=== PATIENT | female | born 1975 | race American Indian/Alaskan Native ===

== ENCOUNTER 2017-03-29 16:42 | Inpatient (IN) | payer MEDICAID ==
[2017-03-29 17:27] LABS: Basophils % (Auto) 0.8 % (0.0-1.8); Eosinophils % (Auto) 4.6 % (0.0-4.3); Hematocrit 38.6 % (30.3-42.9); Hemoglobin 12.7 gm/dl (10.1-14.3); Mean Corpuscular HGB Conc 33 % (30-34); Mean Corpuscular Hemoglobin 27 pg (28-32); Mean Corpuscular Volume 82 fl (79-97); Platelet Count 329 K/mm3 (140-440); Red Blood Count 4.74 M/mm3 (3.65-5.03); Red Cell Distribution Width 13.7 % (13.2-15.2); White Blood Count 6.7 K/mm3 (4.5-11.0)
[2017-03-29 17:33] LABS: Anion Gap 20 mmol/L; Blood Urea Nitrogen 12 mg/dL (7-17); Calcium 8.9 mg/dL (8.4-10.2); Carbon Dioxide 22 mmol/L (22-30); Chloride 100.1 mmol/L (98-107); Glucose 273 mg/dL (65-100); Potassium 4.1 mmol/L (3.6-5.0); Sodium 138 mmol/L (137-145)
[2017-03-29 17:45] LABS: INR 0.93 (0.87-1.13)
[2017-03-29 17:46] LABS: Partial Thromboplastin Time 28.8 Sec. (24.2-36.6)
--- NOTE | 2017-03-29 18:35 | Cat Scan Report ---
FINAL REPORT PROCEDURE: CT HEAD/BRAIN WO CON TECHNIQUE: Computerized tomography of the head was performed without contrast material. HISTORY: neuro deficits \T\lt; 6hrs or sx present upon awakening COMPARISON: No prior studies are available for comparison. FINDINGS: Visualized portions of the paranasal sinuses and mastoid air cells are clear. Minimal mucosal thickening is seen in the left ethmoid air cells. Cerebral ventricles are normal in size. No acute intracranial hemorrhage or mass effect is seen. No CVA is seen. Artifacts slightly limit the study. IMPRESSION: No abnormalities are seen.
[2017-03-29] MEDS ORDERED: TORADOL IV ONE (21:54)
[2017-03-29] MEDS ORDERED: CATAPRES PO ONE (21:54)
[2017-03-29] MEDS ORDERED: ASPIRIN PO ONE (21:55)
--- NOTE | 2017-03-29 22:44 | Emergency Department Report ---
ED Neuro Deficit HPI - General Chief Complaint: Weakness Stated Complaint: CHANGE IN SPEECH/RT ARM PAIN Time Seen by Provider: 03/29/17 20:44 Source: patient Mode of arrival: Ambulatory Limitations: No Limitations - History of Present Illness Initial Comments: 42-year-old female with a past medical history of CHF, COPD, diabetes, hypertension, schizophrenia, bipolar disorder, and lupus (daily prednisone use) presents to the hospital with elevated blood pressure and neurologic deficits. Patient states in her psychiatric clinic they were checking blood pressures. Her blood pressure was found to be elevated. Upon further questioning she admitted to staff that she has had slurred speech 1 week and right arm weakness and pain 1 week. Patient also complains of intermittent headache 1 week but denies headache currently. Patient does not take an aspirin daily. She has been compliant with all her medications including BP meds. Patient had an pain in her right shoulder which is worse with palpation and movement. Denies any recent trauma or fevers. - Related Data Home Medications: Home Medications Medication Instructions Recorded Confirmed Last Taken Glyburide 10 mg PO BID 03/29/17 03/29/17 03/29/17 Haldol 10 mg PO QHS 03/29/17 03/29/17 03/28/17 Metoprolol 25 mg PO DAILY 03/29/17 03/29/17 03/29/17 Prednisone 10 mg PO DAILY 03/29/17 03/29/17 03/29/17 Zoloft 50 mg PO DAILY 03/29/17 03/29/17 03/29/17 12:00 lamoTRIgine 50 mg PO DAILY 03/29/17 03/29/17 03/29/17 12:00 metFORMIN 1,000 mg BID 03/29/17 03/29/17 03/29/17 Allergies/Adverse Reactions: Allergies Allergy/AdvReac Type Severity Reaction Status Date / Time strawberry Allergy Hives Verified 03/29/17 16:55 ED Review of Systems ROS: Stated complaint: CHANGE IN SPEECH/RT ARM PAIN Other details as noted in HPI Comment: All other systems reviewed and negative Other: Constitutional: No fevers chills Eyes: No eye pain visual changes ENT: No ear pain or throat pain Neck: Denies pain Respiratory: Denies cough wheezing shortness of breath Cardiovascular: Denies chest pain, palpitations, syncope GI: Denies abdominal pain, nausea, vomiting, diarrhea : Denies dysuria Musculoskeletal: As per HPI Skin: Denies rash, lesions, erythema Neurologic: As per HPI Psychiatric: Denies suicidal ideation, hallucinations ED Past Medical Hx - Past Medical History Previous Medical History?: Yes Hx Hypertension: Yes Hx Congestive Heart Failure: Yes Hx Diabetes: Yes Hx Psychiatric Treatment: Yes (Schz. Bi-polar Depression) Hx COPD: Yes Additional medical history: Lupus - Social History Smoking Status: Never Smoker Substance Use Type: None - Medications Home Medications: Home Medications Medication Instructions Recorded Confirmed Last Taken Type Glyburide 10 mg PO BID 03/29/17 03/29/17 03/29/17 History Haldol 10 mg PO QHS 03/29/17 03/29/17 03/28/17 History Metoprolol 25 mg PO DAILY 03/29/17 03/29/17 03/29/17 History Prednisone 10 mg PO DAILY 03/29/17 03/29/17 03/29/17 History Zoloft 50 mg PO DAILY 03/29/17 03/29/17 03/29/17 12:00 History lamoTRIgine 50 mg PO DAILY 03/29/17 03/29/17 03/29/17 12:00 History metFORMIN 1,000 mg BID 03/29/17 03/29/17 03/29/17 History ED Neuro Physical Exam - General Limitations: No Limitations Suspected Stroke: Yes - Neurological Exam Neurological exam: Present: alert - NIHSS Assessment Interval: Baseline 1a. Level of Consciousness: alert 1b. LOC Questions: answers correctly 1c. LOC Commands: performs tasks correctly 2. Best Gaze: normal 3. Visual: no visual loss 4. Facial Palsy: normal symmetrical movement 5b. Motor Arm Right: drift 5a. Motor Arm Left: no drift 6a. Motor Leg Left: no drift 6b. Motor Leg Right: drift 7. Limb Ataxia: absent 8. Sensory: normal 9. Best Language: no aphasia 10. Dysarthria: normal 11. Extinction/Inattention: no abnormality Total Score: 2 Stroke Severity: Minor Stroke - Other Other exam information: General: No limitations, patient is alert in no acute distress Head exam: Atraumatic, normocephalic Eyes exam: Normal appearance, pupils equal reactive to light, extraocular movements intact ENT: Moist mucous membrane, normal oropharynx Neck exam: Normal inspection, full range of motion, no meningismus nontender Respiratory exam: Clear to auscultation bilateral, no wheezes, rales, crackles Cardiovascular: Normal rate and rhythm, normal heart sounds Abdomen: Soft, nondistended, and nontender, with normal bowel sounds, no rebound, or guarding Extremity: No deformity. Tenderness to right shoulder. No warmth or erythema. Pain with extension, abduction, and external rotation of the right shoulder and therefore limited. Pain at the right hip with active flexion. Back: Normal Inspection, full range of motion, no tenderness Neurologic: Alert, oriented x3, cranial nerves intact, no facial droop, I do not appreciate significant slurred speech but patient claims her speech is different from normal. Equal hand microsoft developer and foot dorsiflexion. Weakness in the right arm with extension at the shoulder secondary to pain. Patient also had an decrease in tach gravity strength of the right leg and complains of right hip pain. Strength is 4/5 on a right compared to 5/5 on the left upper and lower extremity Psychiatric: normal affect, normal mood Skin: Warm, dry, intact ED Course Vital Signs 03/29/17 03/29/17 03/29/17 16:56 20:31 21:26 Temperature 98.6 F Pulse Rate 98 H 90 Respiratory 16 Rate Blood Pressure 177/111 185/121 O2 Sat by Pulse 100 98 99 Oximetry 03/29/17 03/29/17 21:30 21:41 Temperature Pulse Rate 81 Respiratory 16 Rate Blood Pressure 187/100 O2 Sat by Pulse 99 Oximetry - Reevaluation(s) Reevaluation #1: 03/29/17 22:40 She received aspirin, Toradol, and clonidine for stroke symptoms, pain, and elevated blood pressure - Consultations Consultation #1: 03/29/17 21:[address] Sanders rehabilitation teacher neurologist with the neurology service. Agrees that presentation sounds atypical for stroke and compounded by the fact that patient has significant pain to these extremities as well. Recommended MRI in a.m. to rule out stroke symptoms and blood pressure management. He will write a note - Lab Data Result diagrams: 03/29/17 17:07 03/29/17 17:00 Lab Results 03/29/17 03/29/17 03/29/17 Range/Units 17:00 17:00 17:07 WBC 6.7 (4.5-11.0) K/mm3 RBC 4.74 (3.65-5.03) M/mm3 Hgb 12.7 (10.1-14.3) gm/dl Hct 38.6 (30.3-42.9) % MCV 82 (79-97) fl MCH 27 L (28-32) pg MCHC 33 (30-34) % RDW 13.7 (13.2-15.2) % Plt Count 329 (140-440) K/mm3 Lymph % (Auto) 35.5 H (13.4-35.0) % Vance % (Auto) 5.9 (0.0-7.3) % Eos % (Auto) 4.6 H (0.0-4.3) % Baso % (Auto) 0.8 (0.0-1.8) % Lymph # 2.4 (1.2-5.4) K/mm3 Vance # 0.4 (0.0-0.8) K/mm3 Eos # 0.3 (0.0-0.4) K/mm3 Baso # 0.1 (0.0-0.1) K/mm3 Seg Neutrophils % 53.2 (40.0-70.0) % Seg Neutrophils # 3.6 (1.8-7.7) K/mm3 PT 12.9 (12.2-14.9) Sec. INR 0.93 (0.87-1.13) APTT 28.8 (24.2-36.6) Sec. Thrombin Time (15.1-19.6) Sec. Sodium 138 (137-145) mmol/L Potassium 4.1 (3.6-5.0) mmol/L Chloride 100.1 (98-107) mmol/L Carbon Dioxide 22 (22-30) mmol/L Anion Gap 20 mmol/L BUN 12 (7-17) mg/dL Creatinine 0.8 (0.7-1.2) mg/dL Estimated GFR > 60 ml/min BUN/Creatinine Ratio 15.00 % Glucose 273 H (65-100) mg/dL Calcium 8.9 (8.4-10.2) mg/dL Troponin T < 0.010 (0.00-0.029) ng/mL 03/29/17 Range/Units 17:07 WBC (4.5-11.0) K/mm3 RBC (3.65-5.03) M/mm3 Hgb (10.1-14.3) gm/dl Hct (30.3-42.9) % MCV (79-97) fl MCH (28-32) pg MCHC (30-34) % RDW (13.2-15.2) % Plt Count (140-440) K/mm3 Lymph % (Auto) (13.4-35.0) % Vance % (Auto) (0.0-7.3) % Eos % (Auto) (0.0-4.3) % Baso % (Auto) (0.0-1.8) % Lymph # (1.2-5.4) K/mm3 Vance # (0.0-0.8) K/mm3 Eos # (0.0-0.4) K/mm3 Baso # (0.0-0.1) K/mm3 Seg Neutrophils % (40.0-70.0) % Seg Neutrophils # (1.8-7.7) K/mm3 PT (12.2-14.9) Sec. INR (0.87-1.13) APTT (24.2-36.6) Sec. Thrombin Time 15.8 (15.1-19.6) Sec. Sodium (137-145) mmol/L Potassium (3.6-5.0) mmol/L Chloride (98-107) mmol/L Carbon Dioxide (22-30) mmol/L Anion Gap mmol/L BUN (7-17) mg/dL Creatinine (0.7-1.2) mg/dL Estimated GFR ml/min BUN/Creatinine Ratio % Glucose (65-100) mg/dL Calcium (8.4-10.2) mg/dL Troponin T (0.00-0.029) ng/mL - EKG Data -: EKG Interpreted by Me (sinus rate [address] elevation PR can't rule out anterior infarct) When compared to previous EKG there are: previous EKG unavailable - Radiology Data Radiology results: report reviewed Read by radiologist CT head: No acute findings Read by me: Right shoulder x-ray: No acute fracture. Possible degenerative joint disease. Official report requested and pending - Medical Decision Making Plan admit patient to the hospital for blood pressure reduction. I suspect that patient's symptoms are musculoskeletal related and weakness is secondary to pain however, patient has several stroke risk factors and after consultation with neurology patient will receive MRI during admission to rule out stroke - Differential Diagnosis lupus cerebritis, CVA, musculoskeletal pain, hypertensive emergency Critical Care Time: No Critical care attestation.: If time is entered above; I have spent that time in minutes in the direct care of this critically ill patient, excluding procedure time. ED Disposition Clinical Impression: Right sided weakness, Right shoulder pain, Lupus, Uncontrolled hypertension, Slurred speech, Schizophrenia, Bipolar disorder, Diabetes Disposition: OP ADMIT IP TO THIS HOSP Is pt being admited?: Yes Does the pt Need Aspirin: Yes Condition: Stable Referrals: PRIMARY CARE, [Primary Care Provider] - 3-5 Days Time of Disposition: 22:39 (DR Medina/hosp)
--- NOTE | 2017-03-29 23:44 | History and Physical Report ---
History of Present Illness Date of examination: 03/30/17 History of present illness: 42-year-old man with a history of hypertension, lupus, diabetes, COPD, CHF, schizophrenia, bipolar comes emergency room with complaints of slurred speech and right arm numbness. Her blood pressure was noted to be very elevated patient states she is compliant with medications Review Of Systems: Constitutional: no fever, chills, weight loss Ears, eyes, nose, mouth and throat: no nasal congestion, no nasal discharge, no sinus pressure, blurry vision, diplopia Neck: No neck pain or rigidity. Cardiovascular: chest pain, orthopnea, palpitations Respiratory: No shortness of breath, cough Gastrointestinal: abdominal pain, hematochezia Genitourinary : no dysuria, frequency , hematuria Musculoskeletal: no joint swelling or muscle ache Integumentary: no rash, no pruritis Neurological: no parathesias Endocrine: no cold or heat intolerance, no polyuria or polydipsia Hematologic/Lymphatic: no easy bruising, no easy bleeding, no gland swelling Allergic/Immunologic: no urticaria, no angioedema. PAST MEDICAL HISTORY:hypertension, lupus, diabetes, COPD, CHF, schizophrenia, bipolar PAST SURGICAL HISTORY: Ankle FAMILY HISTORY: Hypertension SOCIAL HISTORY: Denies alcohol, tobacco or drug Medications and Allergies Allergies Allergy/AdvReac Type Severity Reaction Status Date / Time strawberry Allergy Hives Verified 03/29/17 16:55 Home Medications Medication Instructions Recorded Confirmed Last Taken Type Glyburide 10 mg PO BID 03/29/17 03/29/17 03/29/17 History Haldol 10 mg PO QHS 03/29/17 03/29/17 03/28/17 History Metoprolol 25 mg PO DAILY 03/29/17 03/29/17 03/29/17 History Prednisone 10 mg PO DAILY 03/29/17 03/29/17 03/29/17 History Zoloft 50 mg PO DAILY 03/29/17 03/29/17 03/29/17 12:00 History lamoTRIgine 50 mg PO DAILY 03/29/17 03/29/17 03/29/17 12:00 History metFORMIN 1,000 mg BID 03/29/17 03/29/17 03/29/17 History Exam - Physical Exam Narrative exam: Gen. appearance: Patient lying in bed, no apparent distress HEENT: Normocephalic, atraumatic, pupils equally round and reactive to light, extraocular movement intact, and no sclericterus,. No JVD or thyromegaly or nodule,neck supple, no carotid bruit ,mucous membranes moist, no exudate or erythema Heart: S1, S2, regular rate and rhythm Lungs: Clear to auscultation bilaterally, breathing comfortable Abdomen: Positive bowel sounds, nontender, nondistended, no organomegaly Extremity: No edema, cyanosis, clubbing Skin: No rash, nodules, warm, dry Neuro: Oriented 3, cranial nerves II-12 intact, speech is fluent, poor effort for motor testing - Constitutional Vitals: Temp Pulse Resp BP Pulse Ox 98.6 F 81 16 187/100 99 03/29/17 16:56 03/29/17 21:41 03/29/17 21:41 03/29/17 21:30 03/29/17 21:30 Results - Labs CBC & Chem 7: 03/29/17 17:07 03/29/17 17:00 Labs: Abnormal lab results 03/29/17 03/29/17 Range/Units 17:00 17:07 MCH 27 L (28-32) pg Lymph % (Auto) 35.5 H (13.4-35.0) % Eos % (Auto) 4.6 H (0.0-4.3) % Glucose 273 H (65-100) mg/dL - Imaging and Cardiology CT Scan - head: report reviewed Assessment and Plan Shoulder x-ray reviewed Assessment Possible CVA Hypertension uncontrolled Diabetes Lupus CHF, stable Schizophrenia Plan Admit to medicine obtain MRI, carotid Doppler, echo Do neurochecks, swallow screen Start aspirin, statin, check fingersticks and initiate insulin sliding scale IV hydralazine as needed for blood pressure control Continue appropriate outpatient medications, start dvt prophalaxis
[2017-03-30] MEDS ORDERED: DULCOLAX PR PRN (00:15)
[2017-03-30] MEDS ORDERED: ZOFRAN IV PRN (00:15)
[2017-03-30] MEDS ORDERED: REGLAN PO PRN (00:15)
[2017-03-30] MEDS ORDERED: MILK OF MAGNESIA PO PRN (00:15)
[2017-03-30] MEDS ORDERED: APRESOLINE IV PRN (00:15)
[2017-03-30] MEDS ORDERED: SODIUM CHLORIDE FLUSH SYRINGE 10 ML IV PRN (00:15)
[2017-03-30] MEDS ORDERED: TYLENOL PO PRN (00:15)
--- NOTE | 2017-03-30 00:29 | XRay Report ---
FINAL REPORT PROCEDURE: XR SHOULDER 2+V RT TECHNIQUE: Right shoulder radiographs including AP views in internal and external rotation and abduction. CPT 64315 HISTORY: shoulder pain COMPARISON: No prior studies are available for comparison. FINDINGS: Fracture (s) and/or Dislocation(s): None . Joint space(s): Moderate narrowing of the joint spaces. Slight subchondral spur formation identified in the proximal humerus and the glenoid.. Soft tissues: Normal . Bone mineralization: Normal . Foreign bodies: None . IMPRESSION: No acute fracture or dislocation. Moderate arthritis
[2017-03-30] MEDS: LOVENOX SUB-Q SCH (10:00)
[2017-03-30] MEDS ORDERED: LOVENOX SUB-Q SCH (10:00)
[2017-03-30] MEDS ORDERED: ATIVAN IV NR (10:00)
--- NOTE | 2017-03-30 10:20 | Admit Criteria Form ---
Admission Criteria Documentation: NEUROLOGY GRG Clinical Indications for Admission to Inpatient Care (Place ' X' for any and all applicable criteria): Hospital admission is needed for appropriate care of the patient because of 1 or more of the following: [ ]I. Encephalitis [ ]II. Severe [employer] infections indicated by 1 or more of the following(1)(2)(3) : [ ]a) Intracranial abscess [ ]b) Spinal abscess or myelitis [ ]c) Tuberculous or other nonbacterial, nonviral [employer] infection(8) [ ]III. Vasculitis and 1 or more of the following(14)(15): []a) Altered mental status that is severe or persistent or other acute neurologic change []b) Psychosis []c) Seizure [ ]IV. Status epilepticus or repetitive seizures not controlled with emergent treatment [A] (7)(8) [ ]V. Altered mental status that is severe or persistent [ ]. Transient alteration in consciousness with high-risk etiology; examples include (12)(13): [ ]a) Cardiovascular source [ ]b) Cataplexy [ ]VII. Cerebral aneurysm requiring ANY ONE of the following(14): [ ]a) IV antihypertensives or vasoactive agents [ ]b) Sedation and analgesia for suspected leak [ ]c) Need for external ventricular drainage and cerebral perfusion pressure monitoring [ ]d) Emergent evaluation to determine need for surgical clipping or endovascular coiling by interventional radiology. If surgery is required ( Also use Craniotomy, Supratentorial, for Surgery of Bleeding Intracranial Aneurysm (for bleeding aneurysm) or Craniotomy, Supratentorial (for nonbleeding aneurysm) as appropriate. [ ]VIII. New-onset severe neurologic symptom requiring inpatient care indicated by ANY ONE of the following: [ ]a) Aphasia(15) [ ]b) Weakness (grade 3 or less) [ ]c) Paralysis (eg, hemiplegia) [ ]d) Spasticity(16) [ ]e) Dystonia [ ]e) Ataxia(17) [ ]f) Amnesia(18) [ ]g) Involuntary movements(19) [ ]h) Vertigo [ ] Visual loss [ ]i) Other severe neurologic finding (eg, papilledema, mass effect on imaging, myoclonus not treatable at alternative level of care (eg, observation care) [ ]IX. Guillain-Forbes syndrome(20) [ ]X. Myasthenia gravis crisis or inpatient monitoring need as indicated by 1 or more of the following(21): [ ]a) Intensive treatment (eg, course of plasmapheresis) with inadequate outpatient situation to monitor patients status [ ]b) Inadequate airway protection [ ]c) Respiratory insufficiency requiring intubation or inpatient. monitoring [ ]d) Progressive dysphagia with failure to thrive [ ]XI. Multiple sclerosis or other acute demyelinating disease requiring inpatient care as indicated by 1 or more of the following (22)(23): [ ]a) Acute severe deterioration requiring inpatient treatment (eg, IV steroids, plasmapheresis, close observation) [ ]b) Acute complication requiring inpatient care (eg, sepsis, severe decubitus, aspiration) [ ]XII.Parkinson disease requiring inpatient care (Also use Optimal Recovery Care Criteria or General Recovery Criteria as appropriate) indicated by 1 or more of the following(25): [ ]a) Infection (eg, aspiration pneumonia) not treatable at alternative level of care [ ]b Dehydration that is severe or persistent [ ]c) Life-threatening agitation or psychotic behavior not treatable on emergency, observation care, or alternative level (eg, residential) basis [ ]d) Severe medication withdrawal effects (eg, freezing, neuroleptic malignant syndrome) not responsive to emergency and observation care treatment ( as appropriate) [ ]e) Other severe manifestation not treatable at alternative level of care [ ]XII. Amyotrophic lateral sclerosis with inpatient care needs as indicated by ANY ONE of the following(26): [ ]a) Acute complications (eg, aspiration pneumonia, sepsis ) requiring inpatient care ( see other optimal Recovery Guideline as appropriate) [ ]b) Dehydration that is severe persistent AND artificial support desired [ ]c) Inadequate airway protection AND artificial support desired [ ]d) Severe ventilatory insufficiency AND artificial support desired [ ]XIII. Myasthenia gravis crisis or inpatient monitoring need as indicated by 1 or more of the following(21): [] a) Inadequate airway protection []b) Respiratory insufficiency requiring intubation or inpatient monitoring []c) Progressive dysphagia with failure to thrive []d) Intensive treatment (e.g., course of plasmapheresis) with inadequate outpatient situation to monitor patients status [ ]XIV. Multiple sclerosis or other acute demyelinating disease requiring inpatient care indicated by 1 or more of the following[C](36)(43)(44)(45)(46): []a) Acute severe deterioration requiring inpatient treatment (eg, IV steroids, plasmapheresis, close observation) []b) Acute complication requiring inpatient care (eg, sepsis, severe decubitus, aspiration) [ ]XV. Intracranial hypertension (e.g., pseudotumor cerebri) requiring inpatient care (e.g., acute visual loss, inadequate oral intake) (47)(48)(49) [ ]XVI. Parkinson disease requiring inpatient care (Also use Optimal Recovery Care Criteria or General Recovery Criteria as appropriate) indicated by 1 or more of the following(25): [] a) Infection (e.g., aspiration pneumonia) not treatable at alternative level of care []b) Volume depletion not responsive to emergency and observation care treatment (as appropriate) []c) Life-threatening agitation or psychotic behavior not treatable on emergency, observation care, or alternative level (e.g., residential) basis []d) Severe medication withdrawal effects (e.g., freezing, neuroleptic malignant syndrome) not responsive to emergency and observation care treatment (as appropriate) []e) Other severe manifestation not treatable at alternative level of care [ ]XVII. Amyotrophic lateral sclerosis with inpatient care needs as indicated by1 or more of the following(42): []a) Acute complications (eg, aspiration pneumonia, sepsis) requiring inpatient care (see other Optimal Recovery Guideline or General Recovery Guideline as appropriate) []b) Dehydration that is severe or persistent AND artificial support desired []c) Inadequate airway protection AND artificial support desired []d) Severe ventilatory insufficiency AND artificial support desired [ ]XVIII. Severe myopathy, neuropathy, or other neuromuscular disease indicated by 1 or more of the following(42)(52)(53)(54): []a ) New-onset severe diffuse weakness (eg, strength 3/5 or less) []b) Severe dysphagia []c) Dyspnea at rest or with minimal exertion (new) []d) Inadequate airway protection []e) Inadequate ventilation indicated by 1 or more of the following : i) Partial pressure of carbon dioxide greater than 44 mm Hg ( 5.9 kPa) (new) ii) Reduced peak expiratory flow rate (new) iii) Vital capacity less than 50% of predicted (less than 15 mL/kg) iv) Peak inspiratory force less negative than -30 cm H2O (- 2942 Pa) [ ]XVII.Complications of congenital or degenerative disease (eg, infection, seizures, dehydration, injury) not responsive to emergency and observation care treatment (as appropriate ) [C](16)(29)(30) [ ]XVIII.Suspected or confirmed nerve or muscle toxic injury, including ANY ONE of the following: [ ]a) Rhabdomyolysis(31) i) Acute renal failure ii) Dehydration that is severe or persistent iii) Altered mental status that is severe or persistent iv) Electrolyte abnormality that remains after emergency or observation level care ( as appropriate) [ ]b) Botulism(32) [ ]c) Other severe toxin-induced sign or symptom [ ]XIX. Neurologic trauma requiring inpatient treatment (medical) indicated by ANY ONE of the following(33)(34): [ ]a) Vital signs or neurologic signs more frequently than every 4 hours [ ]b) Hyperosmolar therapy [ ]c) Respiratory monitoring [ ]d) Intracranial pressure monitoring and treatment [ ]e) Stabilization and immobilization device placement (eg, braces, body jacket) [ ]f) Intubation & mechanical ventilation for airway protection or therapeutic hyperventilation [ ]g) Other treatment or monitoring needed that requires inpatient level of care [ ]XX.Complications of neurologic devices (eg, ventricular shunt, neurostimulator) requiring 1 or more of the following(35)(36): [ ]a) IV antibiotics with monitoring while awaiting culture results [ ]b) Monitoring for hydrocephalus [ X]XXI. Neurology condition symptom, or finding for which emergency and observation care have failed or are not considered appropriate. See General Criteria: Observation Care ISC, General Admission Criteria GRG, or Pediatric General Admission Criteria GRG guideline as appropriate. The original [facility] [employer] content created by [email or web address] has been revised. The portions of the content which have been revised are identified through the use of italic text or in bold, and [facility] has neither reviewed nor approved the modified material. All other unmodified content is copyright [facility] Please see references footnoted in the original [facility] edition 2016 Admission Criteria Met: Yes
--- NOTE | 2017-03-30 13:25 | Magnetic Resonance Report ---
MRI BRAIN WITHOUT CONTRAST INDICATION: Stroke. COMPARISON: Yesterday's head CT. FINDINGS: Noncontrast multiplanar and multisequence MRI of the brain demonstrates normal ventricles and sulci. No acute infarct, hemorrhage mass effect or midline shift. No abnormal extra-axial fluid collections. Normal major intracranial vascular flow voids. Normal posterior fossa with symmetric seventh and eighth nerve complexes and preserved basilar cisterns. Normal eye globes. Mild to moderate bilateral ethmoid sinusitis. Clear remainder imaged paranasal sinuses and mastoid air cells. Partially empty sella. Normal remainder midline structures without evidence of Chiari malformation. CONCLUSION: Bilateral ethmoid sinusitis; otherwise unremarkable exam. Please correlate. Thank you for the opportunity to participate in this patient's care.
--- NOTE | 2017-03-30 16:34 | Progress Note ---
Assessment and Plan Assessment and plan: 42-year-old man with a history of hypertension, lupus, diabetes, COPD, CHF, schizophrenia, bipolar comes emergency room with complaints of slurred speech and right arm numbness. Her blood pressure was noted to be very elevated patient states she is compliant with medications CVA was ruled out -Has no focal weakness, MRI of her brain does not show any stroke, symptoms are most likely due to hypertensive urgency Hypertensive urgency Optimize blood pressure medications Diabetes Accu-Cheks, sliding scale and diabetic diet Continue home medications for her chronic problems include lupus CHF and schizophrenia History Interval history: Denies chest pain and denies shortness of breath denies focal weakness Hospitalist Physical - Physical exam Narrative exam: General: Patient appears well in no distress HEENT: MMM, EOMI cardiac: S1-S2 heard lungs: clear to auscultation, abdomen: soft, nontender, nondistended bowel sounds positive extremities: no edema clubbing or cyanosis Skin: no rash or lesion Neuro: no focal deficit Psych: appropriate behavior and mood, cognition intact - Constitutional Vitals: Temp Pulse Resp BP Pulse Ox 98.2 F 88 16 179/107 96 03/30/17 08:46 03/30/17 08:46 03/30/17 08:46 03/30/17 08:46 03/30/17 08:46 Results - Labs CBC & Chem 7: 03/29/17 17:07 03/29/17 17:00 Labs: Laboratory Last Values WBC 6.7 K/mm3 (4.5-11.0) 03/29/17 17:07 RBC 4.74 M/mm3 (3.65-5.03) 03/29/17 17:07 Hgb 12.7 gm/dl (10.1-14.3) 03/29/17 17:07 Hct 38.6 % (30.3-42.9) 03/29/17 17:07 MCV 82 fl (79-97) 03/29/17 17:07 MCH 27 pg (28-32) L 03/29/17 17:07 MCHC 33 % (30-34) 03/29/17 17:07 RDW 13.7 % (13.2-15.2) 03/29/17 17:07 Plt Count 329 K/mm3 (140-440) 03/29/17 17:07 Lymph % (Auto) 35.5 % (13.4-35.0) H 03/29/17 17:07 [place] % (Auto) 5.9 % (0.0-7.3) 03/29/17 17:07 Eos % (Auto) 4.6 % (0.0-4.3) H 03/29/17 17:07 Baso % (Auto) 0.8 % (0.0-1.8) 03/29/17 17:07 Lymph # 2.4 K/mm3 (1.2-5.4) 03/29/17 17:07 [place] # 0.4 K/mm3 (0.0-0.8) 03/29/17 17:07 Eos # 0.3 K/mm3 (0.0-0.4) 03/29/17 17:07 Baso # 0.1 K/mm3 (0.0-0.1) 03/29/17 17:07 Seg Neutrophils % 53.2 % (40.0-70.0) 03/29/17 17:07 Seg Neutrophils # 3.6 K/mm3 (1.8-7.7) 03/29/17 17:07 PT 12.9 Sec. (12.2-14.9) 03/29/17 17:00 INR 0.93 (0.87-1.13) 03/29/17 17:00 APTT 28.8 Sec. (24.2-36.6) 03/29/17 17:00 Thrombin Time 15.8 Sec. (15.1-19.6) 03/29/17 17:07 Sodium 138 mmol/L (137-145) 03/29/17 17:00 Potassium 4.1 mmol/L (3.6-5.0) 03/29/17 17:00 Chloride 100.1 mmol/L (98-107) 03/29/17 17:00 Carbon Dioxide 22 mmol/L (22-30) 03/29/17 17:00 Anion Gap 20 mmol/L 03/29/17 17:00 BUN 12 mg/dL (7-17) 03/29/17 17:00 Creatinine 0.8 mg/dL (0.7-1.2) 03/29/17 17:00 Estimated GFR > 60 ml/min 03/29/17 17:00 BUN/Creatinine Ratio 15.00 % 03/29/17 17:00 Glucose 273 mg/dL (65-100) H 03/29/17 17:00 POC Glucose 187 (70-105) H 03/30/17 07:59 Calcium 8.9 mg/dL (8.4-10.2) 03/29/17 17:00 Troponin T < 0.010 ng/mL (0.00-0.029) 03/29/17 17:00 - Imaging and Cardiology MRI - head: image reviewed (no acute pathology or stroke)
[2017-03-30] MEDS: ASPIRIN PO SCH (16:51)
[2017-03-30] MEDS: GLUCOPHAGE PO SCH (18:09)
[2017-03-30] MEDS: DIOVAN PO SCH (21:20)
[2017-03-30] MEDS ORDERED: HALDOL PO SCH ×2 (22:00)
[2017-03-30] MEDS ORDERED: ZOCOR PO SCH (22:00)
[2017-03-30] MEDS ORDERED: NON-FORMULARY (Metformin 1,000 MG) PO SCH (22:00)
[2017-03-31 08:17] VITALS: BP 144/94
--- NOTE | 2017-03-31 08:35 | Discharge Summary ---
Providers - Providers Date of Admission: 03/29/17 23:44 Attending physician: HARJINDER BRYAN MD 03/30/17 00:15 Occupational Therapy Evaluate and Treat [CONS] Routine Comment: Reason For Exam: Neuro deficits Physical Therapy Evaluation and Treat [CONS] Routine Comment: Reason For Exam: Neuro deficits 03/30/17 00:23 Consult to Physician [CONS] Routine Consulting Provider: DAVID RODRIGUEZ Reason For Exam: possible cva Notified:: information assurance specialist pl call Primary care physician: MAINTENANCE REPRESENTATIVE Hospitalization Condition: Stable Pertinent studies: MRI brain, image reviewed, no evidence of CVA. Carotid Dopplers, image reviewed, no significant stenosis Hospital course: 42-year-old man with a history of hypertension, lupus, diabetes, COPD, CHF, schizophrenia, bipolar comes emergency room with complaints of slurred speech and right arm numbness. Her blood pressure was noted to be very elevated patient states she is compliant with medications. She never actually had any focal weakness but she did have a numbness and tingling of bilateral upper extremities. She had CT of her head and MRI which ruled out CVA. She did have hypertensive urgency. Medications optimized. She is content to resume her home medications while in hospital. Her symptoms are most likely due to hypertensive urgency and resolved prior to discharge. Discharge diagnosis Hypertensive urgency Diabetes type 2 SLE Schizophrenia Chronic diasystolic CHF Disposition: - TO HOME OR SELFCARE Time spent for discharge: 33 minutes Core Measure Documentation - Palliative Care Palliative Care/ Comfort Measures: Not Applicable - Core Measures Any of the following diagnoses?: none Exam - Constitutional Vitals: Temp Pulse Resp BP Pulse Ox 98.3 F 104 H 20 144/94 98 03/31/17 08:00 03/31/17 08:00 03/31/17 08:00 03/31/17 08:00 03/31/17 08:00 General appearance: Present: no acute distress, well-nourished - EENT Eyes: Present: PERRL ENT: hearing intact, clear oral mucosa - Neck Neck: Present: supple, normal ROM - Respiratory Respiratory effort: normal Respiratory: bilateral: CTA - Cardiovascular Heart Sounds: Present: S1 & S2. Absent: rub, click - Extremities Extremities: pulses symmetrical, No edema Peripheral Pulses: within normal limits - Abdominal General gastrointestinal: Present: soft, non-tender, non-distended, normal bowel sounds Female genitourinary: Present: normal - Integumentary Integumentary: Present: clear, warm, dry - Musculoskeletal Musculoskeletal: gait normal, strength equal bilaterally - Psychiatric Psychiatric: appropriate mood/affect, intact judgment & insight - Neurologic Neurologic: CNII-XII intact, moves all extremities Plan Follow up with: PRIMARY CARE, [Primary Care Provider] - 3-5 Days Prescriptions: Haldol 10 mg PO QHS #30 Glyburide 10 mg PO BID #60 Hydrochlorothiazide [HCTZ] 25 mg PO QDAY #30 tablet lamoTRIgine 50 mg PO DAILY #30 metFORMIN 1,000 mg PO BID #60 Metoprolol 25 mg PO DAILY #30 Prednisone 10 mg PO DAILY #30 Valsartan [Diovan] 160 mg PO BID #60 tablet Zoloft 50 mg PO DAILY #30
[2017-03-31] MEDS ORDERED: LaMICtal PO SCH (10:00)
[2017-03-31] MEDS ORDERED: ZOLOFT 50 MG PO SCH (10:00)
[2017-03-31] MEDS ORDERED: LOPRESSOR PO SCH (10:00)
[2017-03-31] MEDS ORDERED: HCTZ PO SCH (10:00)
[2017-03-31] MEDS ORDERED: ZOLOFT PO SCH (10:00)
[2017-03-31] MEDS ORDERED: NON-FORMULARY (Prednisone 10 MG) PO SCH (10:00)
[2017-03-31] MEDS ORDERED: NON-FORMULARY (Metoprolol 25 MG) PO SCH (10:00)
[2017-03-31] MEDS ORDERED: LAMOTRIGINE 50 MG PO SCH (10:00)
[2017-03-31] MEDS ORDERED: DELTASONE PO SCH (10:00)
[2017-03-31] MEDS: DIOVAN PO SCH (10:54)
--- NOTE | 2017-03-31 10:54 | Consultation ---
History of Present Illness - Reason for Consult Consult date: 03/31/17 stroke - History of Present Illness seen and assessed there is no problem with discharge major c/o bilateral arm pain and tingling the CT and MRI are normal suspect peripheral neuropathy or fibromyalgia causing pain not much of valid / c redible hx behind her symptoms and find very little objective evidence of problem Medications and Allergies Allergies Allergy/AdvReac Type Severity Reaction Status Date / Time strawberry Allergy Hives Verified 03/29/17 16:55 Home Medications Medication Instructions Recorded Confirmed Last Taken Type Glyburide 10 mg PO BID #60 03/31/17 Unknown Rx Haldol 10 mg PO QHS #30 03/31/17 Unknown Rx Hydrochlorothiazide [HCTZ] 25 mg PO QDAY #30 tablet 03/31/17 Unknown Rx Metoprolol 25 mg PO DAILY #30 03/31/17 Unknown Rx Prednisone 10 mg PO DAILY #30 03/31/17 Unknown Rx Valsartan [Diovan] 160 mg PO BID #60 tablet 03/31/17 Unknown Rx Zoloft 50 mg PO DAILY #30 03/31/17 Unknown Rx lamoTRIgine 50 mg PO DAILY #30 03/31/17 Unknown Rx metFORMIN 1,000 mg PO BID #60 03/31/17 Unknown Rx Active Meds: Active Medications Acetaminophen (Tylenol) 650 mg PO Q4H PRN PRN Reason: Pain, Mild (1-3) Aspirin (Aspirin) 325 mg PO QDAY [facility] Last Admin: 03/30/17 16:51 Dose: Not Given Bisacodyl (Dulcolax) 10 mg ME QDAY PRN PRN Reason: Constipation Enoxaparin Sodium (Lovenox) 40 mg SUB-Q QDAY@1000 [facility] Last Admin: 03/30/17 10:00 Dose: Not Given Haloperidol (Haldol) 10 mg PO QHS [facility] Last Admin: 03/30/17 21:24 Dose: 10 mg Hydralazine HCl (Apresoline) 5 mg IV Q6H PRN PRN Reason: Keep SBP between 160-185 mm Hg Hydrochlorothiazide (Hctz) 25 mg PO QDAY [facility] Lamotrigine (Lamictal) 50 mg PO DAILY [facility] Magnesium Hydroxide (Milk Of Magnesia) 30 ml PO Q4H PRN PRN Reason: Constipation Metformin HCl (Glucophage) 1,000 mg PO BIDDIAB [facility] Last Admin: 03/30/17 18:09 Dose: 1,000 mg Metoclopramide HCl (Reglan) 10 mg PO Q6H PRN PRN Reason: Nausea And Vomiting Metoprolol Tartrate (Lopressor) 25 mg PO DAILY [facility] Ondansetron HCl (Zofran) 4 mg IV Q8H PRN PRN Reason: N/V unrelieved by Reglan Prednisone (Deltasone) 10 mg PO QDAY [facility] Sertraline HCl (Zoloft) 50 mg PO QDAY [facility] Simvastatin (Zocor) 20 mg PO QHS [facility] Last Admin: 03/30/17 21:22 Dose: 20 mg Sodium Chloride (Sodium Chloride Flush Syringe 10 Ml) 10 ml IV PRN PRN PRN Reason: LINE FLUSH Valsartan (Diovan) 160 mg PO BID [facility] Last Admin: 03/30/17 21:20 Dose: 160 mg Exam - Constitutional Vitals: Temp Pulse Resp BP Pulse Ox 98.3 F 104 H 20 144/94 98 03/31/17 08:00 03/31/17 08:00 03/31/17 08:00 03/31/17 08:00 03/31/17 08:00 Results - Labs CBC & Chem 7: 03/29/17 17:07 03/29/17 17:00 Labs: Abnormal lab results 03/30/17 03/30/17 03/31/17 Range/Units 16:38 20:57 04:23 POC Glucose 107 H 197 H (70-105) HDL Cholesterol 39 L (40-59) mg/dL
[2017-03-31] MEDS: ASPIRIN PO SCH (10:55)
[2017-03-31] MEDS: LOVENOX SUB-Q SCH (10:56)
[2017-03-31] MEDS: GLUCOPHAGE PO SCH (11:04)
--- NOTE | 2017-04-03 09:24 | Vascular Lab Report ---
CAROTID DUPLEX STUDY: RIGHT PSVEDV CCA PROX:[id number] CCA DIST:5116 ICA PROX:4816 ICA MID:6726 ICA DIST:6223 ECA: 67 VERT: 43 16 LEFT PSVEDV CCA PROX:7619 CCA DIST:6018 ICA PROX:5822 ICA MID:7532 ICA DIST:4121 ECA: 70 VERT: 42 16 REASON FOR EXAM: Stroke. COMMENTS ON THE RIGHT: Doppler frequency analysis is consistent with 16 to 49 percent diameter reduction of the internal carotid artery. Minimal amount of plaque is seen. The common carotid artery is patent. The external carotid artery is patent. The vertebral artery has antegrade flow. COMMENTS ON THE LEFT: Doppler frequency analysis is consistent with 16 to 49 percent diameter reduction of the internal carotid artery. Minimal amount of plaque is seen. The common carotid artery is patent. The external carotid artery is patent. The vertebral artery has antegrade flow. IMPRESSION: Less than 50% diameter reduction in the internal carotid arteries bilaterally. Consider repeat carotid artery duplex in 12 months.
== END 2017-03-31 13:03 | disposition home or self-care (01) | DRG 305 ==
LOC: ED 16:42 → 4A 23:44
PROVIDERS: ADMIT Internal Medicine; ATTEND Internal Medicine
DX: I16.0 Hypertensive urgency (principal); F20.9 Schizophrenia, unspecified; E11.9 Type 2 diabetes mellitus without complications; I11.0 Hypertensive heart disease with heart failure; J44.9 Chronic obstructive pulmonary disease, unspecified; F31.9 Bipolar disorder, unspecified; M32.9 Systemic lupus erythematosus, unspecified; I50.32 Chronic diastolic (congestive) heart failure; Z79.899 Other long term (current) drug therapy; Z82.49 Family history of ischemic heart disease and other diseases of the circulatory system; Z91.018 Allergy to other foods
CPT/HCPCS: 36415; 70450; 70551; 80048; 80061; 82962; 84484; 85025; 85610; 85670; 85730; 93005; 93010; 93306; 93880; 96374; J1650; J1885; J2060; J7512

== ENCOUNTER 2017-05-12 13:21 | Emergency (ER) | payer MEDICAID ==
[2017-05-12 14:05] VITALS: BP 152/91
[2017-05-12 14:27] LABS: Basophils % (Auto) 0.9 % (0.0-1.8); Eosinophils % (Auto) 3.3 % (0.0-4.3); Hematocrit 39.3 % (30.3-42.9); Hemoglobin 12.6 gm/dl (10.1-14.3); Mean Corpuscular HGB Conc 32 % (30-34); Mean Corpuscular Hemoglobin 26 pg (28-32); Mean Corpuscular Volume 82 fl (79-97); Platelet Count 305 K/mm3 (140-440); Red Blood Count 4.78 M/mm3 (3.65-5.03); Red Cell Distribution Width 13.9 % (13.2-15.2); White Blood Count 7.6 K/mm3 (4.5-11.0)
[2017-05-12 14:39] LABS: Anion Gap 17 mmol/L; Blood Urea Nitrogen 8 mg/dL (7-17); Calcium 9.3 mg/dL (8.4-10.2); Carbon Dioxide 24 mmol/L (22-30); Chloride 101.8 mmol/L (98-107); Glucose 174 mg/dL (65-100); Potassium 4.1 mmol/L (3.6-5.0); Sodium 139 mmol/L (137-145)
[2017-05-12 15:08] LABS: Urine Drugs of Abuse Note Disclamer
[2017-05-12 15:31] LABS: Bilirubin,Urine NEG (Negative); Blood,Urine NEG (Negative); Ketones,Urine NEG (Negative); Leukocyte Esterase,Urine NEG (Negative); Mucus,Urine FEW /HPF; Nitrite,Urine NEG (Negative); Urobilinogen,Urine < 2.0 mg/dL (<2.0)
[2017-05-12 15:32] LABS: Protein,Urine >500 mg/dL (Negative)
== END 2017-05-13 10:00 | disposition left against medical advice (07) ==
LOC: ED 13:21
DX: Z53.21 Procedure and treatment not carried out due to patient leaving prior to being seen by health care provider (principal)
CPT/HCPCS: 36415; 80048; 80307; 81001; 85025; G0480; 80320